=== PATIENT | female | born 1985 | race Caucasian/White ===

== ENCOUNTER 2022-07-04 20:10 | Emergency (ER) | payer BC ==
[2022-07-04 20:46] VITALS: BP 126/96; PULSE 82; RESP 16; TEMP 98; BMI 31.7
== END 2022-07-04 21:09 | disposition home or self-care (01) ==
LOC: FER 20:10
PROC: 0HQFXZZ Repair Right Hand Skin, External Approach (ICD-10-PCS; principal; 2022-07-04)
DX: S61.210A Laceration without foreign body of right index finger without damage to nail, initial encounter (principal); W26.8XXA Contact with other sharp object(s), not elsewhere classified, initial encounter
CPT/HCPCS: 99282-25